=== PATIENT | female | born 1960 | race Hispanic/Latino ===

== ENCOUNTER 2020-09-03 13:52 | Outpatient (CLI) | payer OTHER ==
[2020-09-03] MEDS ORDERED: ALBUTEROL 2.5 MG/3 ML NEBU IH ONE (14:42)
== END 2020-09-03 13:53 | disposition home or self-care (01) ==
LOC: PF 13:52
PROVIDERS: ATTEND Internal Medicine
DX: Z02.71 Encounter for disability determination (principal); J45.909 Unspecified asthma, uncomplicated
CPT/HCPCS: 94060; 94640; A9270